=== PATIENT | female | born 1965 | race Hispanic/Latino ===

== ENCOUNTER 2023-10-30 19:27 | Emergency (ER) | payer MEDICARE ==
[~2023-10-30] VITALS: Ht 170.2 cm; Wt 56.7 kg
[2023-10-30 20:57] LABS: BASOPHILS # (AUTO) 0.06 K/uL (0.00-0.20); BASOPHILS % (AUTO) 0.3 % (0.0-5.0); EOSINOPHILS # (AUTO) 0.03 K/uL (0.00-0.70); EOSINOPHILS % (AUTO) 0.1 % (0.0-8.0); HEMATOCRIT 45.4 % (36-48); LYMPHOCYTES # (AUTO) 2.7 K/uL (1.0-4.8); LYMPHOCYTES % (AUTO) 11.9 % (21.0-51.0); MEAN CORPUSCULAR HEMOGLOBIN 28.4 pg (27.0-33.0); MEAN CORPUSCULAR HGB CONC 33.7 g/dL (32.0-36.0); MEAN CORPUSCULAR VOLUME 84.2 fL (79-99); MONOCYTES # (AUTO) 1.6 K/uL (0.1-1.0); MONOCYTES % (AUTO) 7.2 % (3.0-13.0); NEUTROPHILS # (AUTO) 18.1 K/uL (1.8-7.7); NEUTROPHILS % (AUTO) 80.1 % (40.0-77.0); PLATELET COUNT (AUTO) 249 K/uL (130-400); RED BLOOD CELL COUNT(AUTO) 5.39 MIL/uL (4.00-5.50); RED CELL DISTRIBUTION WIDTH 12.6 % (11.0-15.5); WHITE BLOOD COUNT (AUTO) 22.7 K/uL (4.8-10.8)
[2023-10-30 21:14] LABS: CREATININE 1.5 mg/dL (0.5-1.0); POTASSIUM 3.2 mmol/L (3.5-5.1)
[2023-10-30 21:23] LABS: ALBUMIN 3.5 g/dL (3.5-5.0); BILIRUBIN,TOTAL 0.4 mg/dL (0.2-1.0); TOTAL PROTEIN, SERUM 6.9 g/dL (6.0-8.3)
[2023-10-30] MEDS: 0.9%NACL 1000ML 1,000 ML IV ONE (21:49)
[2023-10-30 21:51] LABS: APPEARANCE,URINE CLOUDY (CLEAR); BILIRUBIN,URINE NEGATIVE (NEGATIVE); COLOR,URINE LIGHT-YELLOW (YELLOW); GLUCOSE, URINE (UA) NEGATIVE (NEGATIVE); KETONES,URINE NEGATIVE (NEGATIVE); LEUKOCYTE ESTERASE ,URINE NEGATIVE Leu/uL (NEGATIVE); NITRATE,URINE NEGATIVE (NEGATIVE); OCCULT BLOOD,URINE NEGATIVE (NEGATIVE); PROTEIN,URINE NEGATIVE (NEGATIVE); UROBILINOGEN,URINE 0.2 mg/dL (0.2-1.0)
[2023-10-30 21:52] LABS: ADD UA MICROSCOPIC YES
[2023-10-30 21:53] LABS: BACTERIA,URINE RARE /HPF (None Seen); RBC,URINE 0-1 /HPF (0-1); SQUAMOUS EPITHELIAL CELL,UR FEW /HPF (0-2)
[2023-10-30] MEDS ORDERED: IOHEXOL-350 75 ML VIAL IV ONE (22:12)
[2023-10-30] MEDS: POTASSIUM BICARB/CIT AC 25 MEQ TABLET.EFF PO SCH (22:48)
[2023-10-30] MEDS: ZOSYN 3.375GM +NS 50ML IVPB SCH (22:48)
[2023-10-30] MEDS: MORPHINE 4 MG SYG IVP ONE (23:12)
[2023-10-30] MEDS: ONDANSETRON 4MG INJ IVP ONE (23:12)
[2023-10-31] MEDS: SENNOSIDES 8.6 MG TABLET PO SCH (00:45)
[2023-10-31] MEDS: LACTULOSE 20 GM/30 ML UDCUP PO ONE (00:45)
[2023-10-31] MEDS: BISACODYL 10 MG SUPP.RECT RC ONE (00:46)
[2023-10-31 00:49] VITALS: BP 125/75; PULSE 85; RESP 18; O2SAT 98
== END 2023-10-31 01:04 | disposition home or self-care (01) ==
LOC: EDH 19:27
DX: K59.00 Constipation, unspecified (principal); Z20.822 Contact with and (suspected) exposure to COVID-19
CPT/HCPCS: 99285; 74177; 96374; 71045; 96361; 96375; 87426; 84484; 80053; 85025; 87040; 83605; 81001; 36415; 93005; J7030; J2405; J2270; J2543; Q9967